=== PATIENT | female | born 1995 | race Native Hawaiian/Other Pacific Islander ===

== ENCOUNTER 2020-06-07 17:13 | Outpatient (CLI) | payer MEDICAID ==
[2020-06-07] MEDS ORDERED: LACTATED RINGERS 1,000 ML IV SCH (17:30)
[2020-06-07 18:25] LABS: Hematocrit 28.5 % (30.3-42.9); Hemoglobin 9.9 gm/dl (10.1-14.3); Mean Corpuscular HGB Conc 35 % (30-34); Mean Corpuscular Volume 79 fl (79-97); Platelet Count 356 K/mm3 (140-440); Red Blood Count 3.62 M/mm3 (3.65-5.03)
[2020-06-07] MEDS ORDERED: ONDANSETRON 4 MG/2 ML INJ IV ONE (18:27)
[2020-06-07] MEDS ORDERED: ACETAMINOPHEN 500 MG TAB PO ONE (18:29)
[2020-06-07 18:51] LABS: Alanine Aminotransferase 13 units/L (7-56); Uric Acid 4.2 mg/dL (3.5-7.6)
[2020-06-07 18:56] VITALS: BP 134/57
[2020-06-07] MEDS ORDERED: ACETAMINOPHEN W/CODEINE 300-30 MG TAB PO ONE (19:54)
[2020-06-07] MEDS ORDERED: CYCLOBENZAPRINE 10 MG TAB PO ONE (19:55)
== END 2020-06-07 19:53 | disposition home or self-care (01) ==
LOC: TRG 17:13 → APU 17:15 → TRG 19:53
PROVIDERS: ATTEND Obstetrics & Gynecology
DX: O26.893 Other specified pregnancy related conditions, third trimester (principal); M54.5 Low back pain; O47.03 False labor before 37 completed weeks of gestation, third trimester; Z3A.30 30 weeks gestation of pregnancy
CPT/HCPCS: 36415; 82565; 83615; 84450; 84460; 84550; 85027; 96365; J2405

== ENCOUNTER 2020-06-18 16:23 | Observation (INO) | payer MEDICAID ==
[2020-06-18] MEDS ORDERED: ONDANSETRON 4 MG/2 ML INJ IV PRN (16:38)
[2020-06-18] MEDS ORDERED: ACETAMINOPHEN 325 MG TAB PO PRN (16:38)
[2020-06-18] MEDS ORDERED: SIMETHICONE 80 MG CHEW TAB PO PRN (16:38)
[2020-06-18] MEDS ORDERED: SODIUM CHLORIDE NASAL SPRAY 44ML NS PRN (16:38)
[2020-06-18] MEDS ORDERED: hydrALAZINE 20 MG/1 ML INJ IV PRN (16:38)
[2020-06-18] MEDS ORDERED: DOCUSATE SODIUM 100 MG CAP PO PRN (16:38)
[2020-06-18] MEDS: LACTATED RINGERS 1,000 ML IV SCH (18:35)
[2020-06-18 19:17] LABS: Hematocrit 32.3 % (30.3-42.9); Hemoglobin 10.6 gm/dl (10.1-14.3); Mean Corpuscular HGB Conc 33 % (30-34); Mean Corpuscular Volume 80 fl (79-97); Platelet Count 435 K/mm3 (140-440); Red Blood Count 4.02 M/mm3 (3.65-5.03); Red Cell Distribution Width 14.8 % (13.2-15.2)
[2020-06-18 19:22] LABS: Bacteria,Urine 1+ /HPF (Negative); Bilirubin,Urine NEG (Negative); Blood,Urine NEG (Negative); Color,Urine Yellow (Yellow); Hyaline Casts,Urine 1 /LPF; Mucus,Urine 1+ /HPF; Protein,Urine <15 mg/dL mg/dL (Negative); Urobilinogen,Urine < 2.0 mg/dL (<2.0)
[2020-06-18 19:36] LABS: Alanine Aminotransferase 20 units/L (7-56); Uric Acid 3.2 mg/dL (3.5-7.6)
[2020-06-18] MEDS ORDERED: ZOLPIDEM 5 MG TAB PO PRN (20:15)
[2020-06-19] MEDS: LACTATED RINGERS 1,000 ML IV SCH (02:47)
--- NOTE | 2020-06-19 07:27 | History and Physical Report ---
History of Present Illness Date of examination: 06/19/20 Date of admission: 06/18/20 16:23 Chief complaint: sent from [facility] for elevated blood pressure History of present illness: Pt is a 25 year old female BLANE 08/10/20 at 32w4d who presents from [facility] with mild blood pressure elevation for serial blood pressure monitoring and 24 hr urine collection. She denies headache, blurry vision, RUQ pain or scotomata. She has had care at [facility] with comanagement by [facility] secondary to morbid obesity, left pyelectasis, silent carrier for alpha thalassemia, and UTI s/p Keflex on 02/02/20. Her GBS status is positive. 24 hr urine collection started at 1715 pm 06/18/20 Past History Past Medical History: other (morbid obesity ) Past Surgical History: other (Nexplanon insertion and removal ) Family/Genetic History: diabetes, hypertension, cancer Social history: no significant social history - Obstetrical History Expected Date of Delivery: 08/10/20 Actual Gestation: 32 Week(s) 4 Day(s) : 3 Para: 2 Hx # Term Pregnancies: 0 Number of Pregnancies: 0 Spontaneous Abortions: 0 Induced : 0 Number of Living Children: 2 Medications and Allergies Allergies Allergy/AdvReac Type Severity Reaction Status Date / Time No Known Allergies Allergy Verified 03/25/14 22:48 Home Medications Medication Instructions Recorded Confirmed Last Taken Type Ferrous Sulfate 324 MG 325 tab PO DAILY 06/18/20 06/18/20 06/18/20 History Active Meds: Active Medications Acetaminophen (Acetaminophen 325 Mg Tab) 650 mg PO Q4H PRN PRN Reason: Pain MILD(1-3)/Fever >100.5/VICTORIA Docusate Sodium (Docusate Sodium 100 Mg Cap) 100 mg PO Q12H PRN PRN Reason: Constipation Hydralazine HCl (Hydralazine 20 Mg/1 Ml Inj) 5 mg IV Q30MIN PRN PRN Reason: Hypertension Lactated Ringer's (Lactated Ringers) 1,000 mls @ 125 mls/hr IV DIRECT EILEEN Last Admin: 06/19/20 02:47 Dose: 125 mls/hr Documented by: Multivitamins/Iron/Calcium ( [id number] Fumarate-Folic Acid Vit Tab) 1 each PO QDAY EILEEN Ondansetron HCl (Ondansetron 4 Mg/2 Ml Inj) 4 mg IV Q6H PRN PRN Reason: Nausea And Vomiting Simethicone (Simethicone 80 Mg Chew Tab) 80 mg PO Q6H PRN PRN Reason: Gas pain Sodium Chloride (Sodium Chloride Nasal [place] 44ml) 2 spray NS Q4H PRN PRN Reason: Congestion Zolpidem Tartrate (Zolpidem 5 Mg Tab) 10 mg PO QHS PRN PRN Reason: Sleep Review of Systems All systems: negative - Vital Signs Vital signs: Vital Signs Temp Pulse Resp BP Pulse Ox 97.9 F 100 H 16 123/60 98 06/18/20 17:07 06/18/20 17:07 06/18/20 17:07 06/18/20 17:07 06/18/20 17:07 Temp Pulse Resp BP Pulse Ox 98.1 F 96 H 20 110/65 98 06/18/20 19:49 06/18/20 23:30 06/18/20 19:49 06/18/20 23:30 06/18/20 19:50 - Physical Exam Breasts: Positive: deferred Abdomen: Positive: soft (gravid, obese ) Uterus: Positive: enlarged (gravid ) Extremities: Positive: normal - Obstetrical FHR: auscultation normal Uterine Contraction Monitor Mode: External Uterine Contraction Pattern: Absent Uterine Tone Measurement Phase: Resting Results Result Diagrams: 06/18/20 19:03 06/18/20 19:03 Abnormal lab results 06/18/20 06/18/20 Range/Units 19:03 19:03 WBC 13.3 H (4.5-11.0) K/mm3 MCH 26 L (28-32) pg Creatinine 0.4 L (0.6-1.2) mg/dL Uric Acid 3.2 L (3.5-7.6) mg/dL Lactate Dehydrogenase 193 H (91-180) units/L All other labs normal. Assessment and Plan A: IUP at 32w4d Elevated blood pressure at [facility] office, primarily normotensive since admission Morbid Obesity Alpha Thalassemia silent carrier Pyelectasis GBS positive P: Continue serial blood pressure monitoring Continue 24 hour urine protein collection Closely monitor maternal and status
[2020-06-19] MEDS ORDERED: BETAMET ACET/BETAMET NA PH 6 MG/ML INJ 5 ML MDV IM SCH (10:00)
[2020-06-19] MEDS ORDERED: PRENATAL VIT27-FE FUMARATE-FOLIC ACID VIT TAB PO SCH (10:00)
[2020-06-19] MEDS ORDERED: NEOMY 3.5 MG/BACIT 400 UNITS/POLY B 5000 UNITS/GM OINT PACKET TP SCH (14:00)
--- NOTE | 2020-06-19 16:24 | Consultation ---
History of Present Illness Consult date: 06/19/20 Reason for consult: gestational hypertension History of present illness: Ms Garrett is a 25 year old female BLANE 08/10/20 at 32w4d. Pt was sent from our office, 06/18, for elevated blood pressures. 24 H urine collection is in progress. SHe is without complaints at this time. Denies DFM,VB, ROM or contractions, she further denies headache, blurry vision, RUQ pain or scotomata. Past History Past Medical History: other (morbid obesity ) Past Surgical History: other (Nexplanon insertion and removal ) Family/Genetic History: diabetes, hypertension, cancer - Obstetrical History : 3 Medications and Allergies Allergies Allergy/AdvReac Type Severity Reaction Status Date / Time No Known Allergies Allergy Verified 03/25/14 22:48 Home Medications Medication Instructions Recorded Confirmed Last Taken Type Ferrous Sulfate 324 MG 325 tab PO DAILY 06/18/20 06/18/20 06/18/20 History Active Meds: Active Medications Acetaminophen (Acetaminophen 325 Mg Tab) 650 mg PO Q4H PRN PRN Reason: Pain MILD(1-3)/Fever >100.5/VICTORIA Betamethasone Acet/Betameth SodPhos (Betamet Acet/Betamet Na Ph 6 Mg/Ml Inj 5 Ml Mdv) 12 mg IM Q24HR EILEEN Stop: 06/20/20 10:01 Docusate Sodium (Docusate Sodium 100 Mg Cap) 100 mg PO Q12H PRN PRN Reason: Constipation Hydralazine HCl (Hydralazine 20 Mg/1 Ml Inj) 5 mg IV Q30MIN PRN PRN Reason: Hypertension Lactated Ringer's (Lactated Ringers) 1,000 mls @ 125 mls/hr IV DIRECT EILEEN Last Admin: 06/19/20 02:47 Dose: 125 mls/hr Documented by: Multivitamins/Iron/Calcium ( Bri68-Kg Fumarate-Folic Acid Vit Tab) 1 each PO QDAY EILEEN Neomycin/Polymyxin/Bacitracin (Neomy 3.5 Mg/Bacit 400 Units/Poly B 5000 Units/Gm Oint Packet) 1 applic TP TID EILEEN Ondansetron HCl (Ondansetron 4 Mg/2 Ml Inj) 4 mg IV Q6H PRN PRN Reason: Nausea And Vomiting Simethicone (Simethicone 80 Mg Chew Tab) 80 mg PO Q6H PRN PRN Reason: Gas pain Sodium Chloride (Sodium Chloride Nasal [place] 44ml) 2 spray NS Q4H PRN PRN Reason: Congestion Zolpidem Tartrate (Zolpidem 5 Mg Tab) 10 mg PO QHS PRN PRN Reason: Sleep - Vital Signs Vital signs: Vital Signs Temp Pulse Resp BP Pulse Ox 97.9 F 100 H 16 123/60 98 06/18/20 17:07 06/18/20 17:07 06/18/20 17:07 06/18/20 17:07 06/18/20 17:07 Temp Pulse Resp BP Pulse Ox 97.8 F 96 H 20 137/86 98 06/19/20 09:00 06/19/20 15:54 06/18/20 19:49 06/19/20 15:54 06/18/20 19:50 Results Result Diagrams: 06/18/20 19:03 06/18/20 19:03 Abnormal lab results 06/18/20 06/18/20 Range/Units 19:03 19:03 WBC 13.3 H (4.5-11.0) K/mm3 MCH 26 L (28-32) pg Creatinine 0.4 L (0.6-1.2) mg/dL Uric Acid 3.2 L (3.5-7.6) mg/dL Lactate Dehydrogenase 193 H (91-180) units/L All other labs normal. Assessment and Plan ASSESSMENT 1. SIUP @ 32.4 weeks gestation 2. Concern for elevated BPs-24h urine in progress currently normotensive s/p 1st dose BMZ 3. MO PLAN 1.BMZ #2 as scheduled 2. Awaiting 24h urine results
[2020-06-19 17:27] VITALS: BP 131/63
[2020-06-19 17:56] LABS: Creatinine,Urine 37.7 mg/dL (0.1-20.0)
--- NOTE | 2020-06-19 21:24 | Discharge Summary ---
Providers - Providers Date of Admission: 06/18/20 16:23 Date of discharge: 06/19/20 Attending physician: LEONEL PRIDE Primary care physician: WILLIAM ELIAS Hospitalization Reason for admission: other (elevated blood pressures ) Procedure details: Serial blood pressure monitoring Betamethasone 12 mg IM (1st dose 06/19/20) Discharge diagnosis: other (IUP at 32 wks, morbid obesity, labile blood pressure) Hospital course: Pt was sent from [facility] office appt secondary to elevated blood pressures for serial blood pressure monitoring and 24 hour urine collection. During her hospitalization, she had only 2 elevated blood pressures while noted to be lying on her cuff, but otherwise remained normotensive. She received the first of two doses of betamethasone during her stay. Her 24 hr urine protein was 262.5 mg. She will return on 06/20/20 for her second dose of betamethasone. She will also follow up in the office within 7 days and has been given PIH precautions. Condition at discharge: Stable Disposition: DC-01 TO HOME OR SELFCARE - Discharge Diagnoses (1) Status: Acute Qualifiers: Weeks of gestation: 32 weeks Qualified Code(s): Z3A.32 - 32 weeks gestation of (2) Morbid obesity Status: Acute (3) Elevated blood pressure affecting in third trimester, antepartum Status: Acute Plan - Provider Discharge Summary Activity: routine Diet: routine Instructions: routine Additional instructions: [] Smoking cessation referral if applicable(refer to patient education folder for contact #) [] Refer to [facility] Booklet Call your doctor immediately for: * Fever > 100.5 * Heavy vaginal bleeding ( >1 pad per hour) * Severe persistent headache * Shortness of breath * Reddened, hot, painful area to leg or breast * Drainage or odor from incision. * Keep incision clean and dry at all times and follow doctor's instructions regarding bathing/showering - Follow up plan Follow up: WILLIAM ELIAS MD [Primary Care Provider] - 7 Days Forms: [facility] Discharge Summary
== END 2020-06-19 17:55 | disposition home or self-care (01) ==
LOC: LD 16:23
PROVIDERS: ADMIT Obstetrics & Gynecology; ATTEND Obstetrics & Gynecology
DX: O26.893 Other specified pregnancy related conditions, third trimester (principal); Z20.822 Contact with and (suspected) exposure to COVID-19; R03.0 Elevated blood-pressure reading, without diagnosis of hypertension; O99.213 Obesity complicating pregnancy, third trimester; E66.01 Morbid (severe) obesity due to excess calories; O23.03 Infections of kidney in pregnancy, third trimester; Z3A.32 32 weeks gestation of pregnancy; Z98.890 Other specified postprocedural states
CPT/HCPCS: 36415; 81001; 82565; 82570; 82575; 83615; 84156; 84450; 84460; 84550; 85027; 86850; 86900; 86901; 96360; 96361; 96372; G0378; G0379; J0702; J7120; U0003

== ENCOUNTER 2020-06-20 17:20 | Outpatient (CLI) | payer MEDICAID ==
[2020-06-20 17:46] VITALS: BP 127/60
[2020-06-20] MEDS ORDERED: BETAMET ACET/BETAMET NA PH 6 MG/ML INJ 5 ML MDV IM ONE (18:20)
== END 2020-06-20 18:39 | disposition home or self-care (01) ==
LOC: TRG 17:20 → APU 17:22 → TRG 18:39
PROVIDERS: ATTEND Obstetrics & Gynecology
DX: O47.03 False labor before 37 completed weeks of gestation, third trimester (principal); O16.3 Unspecified maternal hypertension, third trimester; O99.213 Obesity complicating pregnancy, third trimester; E66.01 Morbid (severe) obesity due to excess calories; Z3A.32 32 weeks gestation of pregnancy
CPT/HCPCS: 59025; 96372; J0702